=== PATIENT | female | born 1965 | race Caucasian/White ===

== ENCOUNTER 2020-09-09 22:29 | Emergency (ER) | payer OTHER, SELFPAY ==
[2020-09-09 22:50] VITALS: BP 164/95; PULSE 84; RESP 17; TEMP 36.3; O2SAT 97; BMI 27.4
--- NOTE | 2020-09-09 22:53 | ED_ITS ---
HPI - Abdominal Pain General Chief Complaint: Abdominal Pain Stated Complaint: ABD PAIN Time Seen by Provider: 09/09/20 22:36 Source: patient Mode of arrival: Ambulatory Limitations: no limitations History of Present Illness HPI narrative: 54F nonsmoker with extensive history of abdominal pain and multiple evaluations over the past few years presents with the chief complaint of lower abdominal pain which started a few days ago and has episodes that come and go without any obvious provocation or palliation. She denies any radiation. She denies nausea, vomiting or diarrhea. She denies any change in medications or diet. She has had multipel CTs, MRIs, US, and has been referred to Acquisition Cost Estimator, Urology, and GI. She has an upcoming evaluation for possible exploratory laparoscopy in a few weeks. She's had no change in bowel habits. She denies dysuria, frequency, or urgency. She denies access to any pain medications at home. She is visiting from [place] Related Data Home Medications Medication Instructions Recorded Confirmed [HYCOSAMINE] #0 03/10/06 Allergies Allergy/AdvReac Type Severity Reaction Status Date / Time hydromorphone Allergy Hives Verified 09/09/20 22:50 Review of Systems Constitutional Constitutional: Denies chills, Denies fatigue, Denies fever(s), Denies frequent falls, Denies lethargy and Denies weakness Eyes Eyes: Denies change in vision, Denies eye discharge, Denies irritation and Denies loss of vision ENT Ears, Nose, Mouth, and Throat: Denies change in voice, Denies dizziness, Denies neck pain, Denies sore throat and Denies throat swelling Cardiovascular Cardiovascular: Denies chest pain, Denies irregular heart rhythm, Denies lightheadedness, Denies palpitations, Denies dyspnea, Denies dyspnea on exertion and Denies orthopnea Respiratory Respiratory: Denies cough, Denies dyspnea, Denies dyspnea on exertion and Denies wheezing Gastrointestinal Gastrointestinal: Reports abdominal pain, Denies change in bowel habits, Denies diarrhea, Denies nausea and Denies vomiting Musculoskeletal Musculoskeletal: Denies neck pain and Denies numbness Integumentary/Breasts Skin/Breast: Denies pruritus, Denies erythema, Denies rash and Denies wounds Neurologic Neurologic: Denies behavioral changes, Denies confusion, Denies dizziness, Denie s frequent falls, Denies loss of vision, Denies numbness and Denies weakness Psychiatric Psychiatric: Denies anxiety, Denies behavioral changes, Denies confusion, Denies depression, Denies homicidal ideation and Denies suicidal ideation Endocrine Endocrine: Denies fatigue, Denies flushing and Denies palpitations Hematologic/Lymphatic Hematologic/Lymphatic: Denies easy bruising Allergic/Immunologic Allergic/Immunologic: Denies urticaria, Denies throat swelling and Denies wheezing Patient History Social History Smoking Status: Never smoker Smoking Status: Never smoker alcohol intake frequency: 0-2 drinks per day Substance Use Type: does not use Exam Narrative Exam Narrative: GENERAL: [54] year old patient appears stated age. Well- nourished, well-developed patient, in mild distress. HEAD: Atraumatic. Normocephalic. EYES: Pupils equal round and reactive. Extraocular motions intact. No scleral icterus. No injection or drainage. ENT: Nose without bleeding, purulent drainage. Throat without erythema, tonsillar hypertrophy or exudate. Airway patent. NECK: Trachea midline. Non tender CARDIOVASCULAR: Regular rate and rhythm without murmurs, gallops, or rubs. RESPIRATORY: Clear to auscultation. Breath sounds equal bilaterally. No wheezes, rales, or rhonchi. GASTROINTESTINAL: Abdomen soft, tender in the lower abdomen, nondistended. Bowel sounds present in all 4 quadrants EXTREMITIES: No edema or joint tenderness. BACK: Nontender without deformity or crepitance. No flank tenderness. NEURO: AOx3. SKIN: No rash or erythema of visible areas Initial Vital Signs Initial Vital Signs: Vital Signs Temperature 97.4 F L 09/09/20 22:50 Pulse Rate 84 09/09/20 22:50 Respiratory Rate 17 09/09/20 22:50 Blood Pressure 164/95 H 09/09/20 22:50 Pulse Oximetry 97 09/09/20 22:50 Course Course Course Narrative: No objective findings in labs or imaging. CLUBHOUSE MANAGER consulted and notes Hydrocodone #90 on 09/02. At time of DC I asked her again what her access was to pain medications and she said she had none, that her doctor only gives her a few like 4 or 5. I asked her about that prescription and she said she knew nothing about it. I encouraged her to contact the pharmacy tomorrow and she said she would. Orders Ordered: ED Orders 09/09/20 22:55 CT abdomen pelvis wo con Stat 09/09/20 23:23 Complete Blood Count AUTO DIFF Stat Comprehensive Metabolic Panel Stat Lipase Stat Discontinued Medications Sodium Chloride (Normal Saline 0.9%) 1,000 mls @ 150 mls/hr IV CONT MAC Last Infusion: 09/10/20 00:10 Dose: 0 mls/hr Documented by: Admin: 09/09/20 23:31 Dose: 150 mls/hr Documented by: CASANDRA Morphine Sulfate (Morphine 4 Mg/Ml Inj) 4 mg IV NOW ONE Stop: 09/09/20 22:55 Last Admin: 09/09/20 23:31 Dose: 4 mg Documented by: CASANDRA Vital Signs Vital signs: Vital Signs - 8 hr 09/09/20 22:50 09/10/20 00:10 Temperature 97.4 F L Pulse Rate 84 66 Respiratory Rate 17 17 Blood Pressure 164/95 H 134/74 Pulse Oximetry 97 99 MDM - Abdominal Pain Lab Data Result diagrams: 09/09/20 23:23 09/09/20 23:23 Labs: Lab Results 09/09/20 09/09/20 Range/Units 23:23 23:23 WBC 5.7 (4.5-11.0) X10^3/uL RBC 4.90 (4.0-5.2) X10^6/uL Hgb 14.3 (12.0-16.0) g/dL Hct 42.6 (36-46) % MCV 87.1 (80-100) fL MCH 29.2 (26-34) PG MCHC 33.5 (30-36) % RDW 13.9 (11.6-14.8) % Plt Count 277 (150-400) X10^3/uL Neut % (Auto) 54.2 (50-75) % Lymph % (Auto) 37.6 (25-40) % [place] % (Auto) 7.4 (3-14) % Eos % (Auto) 0.6 L (2-4) % Baso % (Auto) 0.2 (0-2) % Neut # (Auto) 3100 (2493-4091) /uL Lymph # (Auto) 2200 (1021-2412) /uL [place] # (Auto) 400 (0-900) /uL Eos # (Auto) 0 (0-450) /uL Baso # (Auto) 0 (0-100) /uL Sodium 132 L (137-145) mmol/L Potassium 3.8 (3.4-5.1) mmol/L Chloride 100 (98-107) mmol/L Carbon Dioxide 27 (22-32) mmol/L BUN 14 (7-17) mg/dL Creatinine 0.76 (0.52-1.04) mg/dL Estimated GFR > 60.0 (>60) mL/min BUN/Creatinine Ratio 18.4 (6-22) Glucose 93 (70-100) mg/dL Calcium 9.5 (8.4-10.2) mg/dL Total Bilirubin 0.4 (0.2-1.3) mg/dL AST 33 (14-36) IU/L ALT 23 (<35) IU/L Alkaline Phosphatase 79 (38-126) U/L Total Protein 7.6 (6.3-8.2) g/dL Albumin 4.6 (3.5-5.0) g/dL Globulin 3.0 (1.7-4.1) g/dL Albumin/Globulin Ratio 1.5 (1.0-2.8) Lipase 309 H (23-300) U/L Discharge Plan Departure Patient Disposition: Home Clinical Impression: Abdominal pain Qualifiers: Abdominal location: generalized Qualified Code(s): R10.84 - Generalized abdominal pain Instructions: DI for Abdominal Pain-Adult Activity Restrictions/Additional Instructions: *You have been diagnosed with [acute on chronic abdominal pain. CT scan is very reassuring] *What to do: *Take medications as directed *Follow up with your primary care provider in 2-3 days, call for an appointment. Let them know you were seen in the Emergency Department and that we ask that you be seen in follow up *Return to ER if you should have any new, worsening or concerning symptoms, such as [increasing pain, vomiting, fever over 101] Prescriptions: No Action [HYCOSAMINE] Qty: 0 RF: 0 Referrals: [facility] [Outside]
--- NOTE | 2020-09-09 22:55 | DI.CT.S_ITS ---
PROCEDURE: CT ABDOMEN PELVIS WO CON INDICATIONS: severe pain, history of gastric bypass TECHNIQUE: Noncontrast 5 mm thick sections acquired from the diaphragms to the symphysis. 5 mm coronal and sagittal reformats were then performed. For radiation dose reduction, the following was used: automated exposure control, adjustment of mA and/or kV according to patient size. COMPARISON: None. FINDINGS: Image quality: Excellent. ABDOMEN: Lung bases: Lung bases are clear. Heart size is normal. Solid organs: Noncontrast evaluation of the liver demonstrates no focal hepatic lesions. Gallbladder appears within normal limits without calcified gallstones. Pancreas is normal in contours without peripancreatic fat stranding or fluid collections. Spleen is normal in size. No adrenal nodules. Kidneys demonstrate no hydronephrosis. Peritoneum and bowel: Evaluation limited in the absence of intravenous contrast. There is a moderate size hiatal hernia. Postsurgical changes are present consistent with history of Margareth-en-Y gastrojejunostomy gastric bypass. The excluded stomach demonstrates mild wall thickening. There is mild segmental distention at the anastomosis of the alimentary and biliopancreatic limbs likely secondary to a [id number] anastomosis. Unenhanced bowel loops otherwise demonstrate normal wall thickness and caliber. No free fluid or air. Nodes and vessels: No retroperitoneal or mesenteric adenopathy by size criteria. Aorta and inferior vena cava are normal in caliber. Miscellaneous: No ventral hernias. PELVIS: Genitourinary: Bladder wall thickness is normal. Miscellaneous: No inguinal hernias or adenopathy. Bones: No suspicious bony lesions. No vertebral body compression fractures. IMPRESSION: 1. Postsurgical changes demonstrated status post gastric bypass without evidence of obstruction. 2. Mild gastric wall thickening in the excluded stomach is nonspecific and may reflect a gastritis. Recommend correlation clinically. 3. Moderate-sized hiatal hernia. Dictated by: Jeromy Fitzgerald M.D. on 09/10/2020 at 8:13 Approved by: Jeromy Fitzgerald M.D. on 09/10/2020 at 8:27
[2020-09-09] MEDS: SODIUM CHLORIDE 0.9% 1,000 ML 150 ML IV (23:31)
[2020-09-09] MEDS: MORPHINE 4 MG/ML INJ IV (23:31)
[2020-09-09 23:40] LABS: Add Manual Diff / Slide Review NO; Basophils Absolute Auto 0 /uL (0-100); Basophils Percent Auto 0.2 % (0-2); Eosinophils Absolute Auto 0 /uL (0-450); Eosinophils Percent Auto 0.6 % (2-4); Hematocrit 42.6 % (36-46); Hemoglobin 14.3 g/dL (12.0-16.0); Lymphocytes Absolute Auto 2200 /uL (1100-4500); Lymphocytes Percent Auto 37.6 % (25-40); Mean Corpuscular HGB Conc 33.5 % (30-36); Mean Corpuscular Hemoglobin 29.2 PG (26-34); Mean Corpuscular Volume 87.1 fL (80-100); Monocytes Absolute Auto 400 /uL (0-900); Monocytes Percent Auto 7.4 % (3-14); Neutrophils Absolute Auto 3100 /uL (1500-7000); Neutrophils Percent Auto 54.2 % (50-75); Platelet Count 277 X10^3/uL (150-400); Red Cell Distribution Width 13.9 % (11.6-14.8); White Blood Cell Count 5.7 X10^3/uL (4.5-11.0)
[2020-09-09 23:52] LABS: Alanine Aminotransferase 23 IU/L (<35); Albumin 4.6 g/dL (3.5-5.0); Albumin Globulin Ratio 1.5 (1.0-2.8); Alkaline Phosphatase 79 U/L (38-126); Aspartate Aminotransferase 33 IU/L (14-36); BUN Creatinine Ratio 18.4 (6-22); Bilirubin Total 0.4 mg/dL (0.2-1.3); Blood Urea Nitrogen 14 mg/dL (7-17); Calcium 9.5 mg/dL (8.4-10.2); Carbon Dioxide 27 mmol/L (22-32); Chloride 100 mmol/L (98-107); Estimated Glomerular Filt Rate > 60.0 mL/min (>60); Glucose 93 mg/dL (70-100); HEMOLYSIS < 15 (0-50); Lipase 309 U/L (23-300); Potassium 3.8 mmol/L (3.4-5.1); Sodium 132 mmol/L (137-145); Total Protein 7.6 g/dL (6.3-8.2)
[2020-09-10 00:10] VITALS: BP 134/74; PULSE 66; RESP 17; O2SAT 99
== END 2020-09-10 00:10 | disposition home or self-care (01) ==
PROVIDERS: Emergency Provider Emergency Medicine
DX: R10.84 Generalized abdominal pain (principal)
CPT/HCPCS: 36415; 74176; 80053; 83690; 85025; 96361; 96374; 99283; 99284; J2270